=== PATIENT | male | born 2005 | race Caucasian/White ===

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

== ENCOUNTER → 2025-05-28 | Outpatient (CLI) | payer OTHER | LOC: LAB SHORT 12:39 → LAB 12:39 | DX: L05.91 Pilonidal cyst without abscess (principal) | CPT/HCPCS: 87070; 87077; 87147; 87186; 87205 ==

== ENCOUNTER 2025-09-11 06:37 | Day surgery (SDC) | payer OTHER ==
[~2025-09-11] VITALS: Ht 170.2 cm; Wt 83.6 kg
[2025-09-11] VITALS (11 sets, daily range): BP systolic 100–160; BP diastolic 53–97
[~2025-09-11 06:37] MED LIST: CeFAZolin Sodium 2,000 MG in NS 100 ML IV SCH
--- NOTE | 2025-09-11 07:11 | NUR ---
PT TO DAY SURGERY AMBULATORY WITH STEADY GAIT. History, Chart, Medications and Allergies reviewed before start of procedure. Pre-Op teaching done. Pt verbalizes understanding. Patient States Post-Procedure ride home has been arranged WITH MOTHER. BELONGINGS PLACED UNDER GURN. GLASSES TO BE PLACED IN PACU. MOM AND DAD AT BEDSIDE WITH PT.
[2025-09-11] MEDS ORDERED: Bupivacaine 0.5% W/EPI 1:200000 SDV 30 ML Vial ONE (07:17)
[2025-09-11] MEDS ORDERED: Midazolam HCl 1MG / ML 2ML Vial ONE (08:02)
[2025-09-11] MEDS ORDERED: FentaNYL Citrate 50 MCG/ML 2 ML Injection ONE ×2 (08:10→08:27)
[2025-09-11] MEDS ORDERED: Dexamethasone Sod Phos 10 MG/ML 1ML VIAL ONE (08:24)
[2025-09-11] MEDS ORDERED: Ondansetron HCl 2 MG / ML 2ML Vial ONE (08:24)
[2025-09-11] MEDS ORDERED: Metoclopramide HCl 5MG / ML 2ML Vial IV PRN (08:30)
[2025-09-11] MEDS ORDERED: HYDROmorphone HCl/Pf 1MG SYR IV PRN ×2 (08:30)
[2025-09-11] MEDS ORDERED: Ondansetron HCl 2 MG / ML 2ML Vial IV PRN (08:30)
[2025-09-11] MEDS ORDERED: FentaNYL Citrate 50 MCG/ML 2 ML Injection IV PRN ×2 (08:35)
[2025-09-11] MEDS ORDERED: Albuterol 2.5 MG/3 ML VIAL INH PRN (08:35)
[2025-09-11] MEDS ORDERED: Ketorolac Tromethamine 30mg Vial ONE (09:47)
[2025-09-11] MEDS ORDERED: Sugammadex Sodium 200 MG/2ML SDV (100 MG/ML) ONE (09:48)
--- NOTE | 2025-09-11 10:55 | NUR ---
PT TO STEP. DENIES C/O PAIN OR NAUSEA. PRESSURE TO NATTY DRAIN APPLIED AT INSERTION SITE BY PACU NURSE DUE TO SMALL AMOUNT OF DRAINAGE AROUND SITE. DRAINAGE APPREATED TO HAVE STOPPED. NO OTHER DRAINAGE NOTED FROM INCISION. APPROX. 20ML OF FLUID RED FLUID IN NATTY DRAIN. INSTUCTIONS ON HOW TO EMPTY DRAIN GIVEN TO PATIENT AND MOTHER. BOTH VERBALIZED UNDERSTANDING. ALSO ADVISED TO LOG DATE, TIME, AMOUNT AND COLOR OF DRAINAGE.
--- NOTE | 2025-09-11 11:06 | NUR ---
DRESSING REASSESSED, NO DRAINAGE NOTED.
--- NOTE | 2025-09-11 11:48 | NUR ---
WRITTEN AND VERBAL D/C INSTUCTIONS GIVEN TO PATIENT AND PARENTS. VERBALIZED UNDERSTANDING. NO DRAINAGE NOTED ON DRESSING. D/C HOME VIA W/C.
== END 2025-09-11 23:00 | disposition home or self-care (01) ==
LOC: ORSCMMR 06:37 → ORD 08:00 → ORSCMMR 08:00
PROVIDERS: Student in an Organized Health Care Education/Training Program
PROC: 0HX8XZZ Transfer Buttock Skin, External Approach (ICD-10-PCS; principal; 2025-09-11 08:00)
PROC: 0JX90ZB Transfer Buttock Subcutaneous Tissue and Fascia with Skin and Subcutaneous Tissue, Open Approach (ICD-10-PCS; principal; 2025-09-11 08:00)
DX: L05.91 Pilonidal cyst without abscess (principal)
CPT/HCPCS: 88304; A9270; J0690; J1100; J1885; J2250; J2405; J2704; J3010; J7120